=== PATIENT | male | born 1965 | race African-American/Black ===

== ENCOUNTER 2025-01-09 09:46 | Emergency (ER) | payer MEDICAID ==
[~2025-01-09] VITALS: Ht 177.8 cm; Wt 82.0 kg
[2025-01-09 09:55] VITALS: BP 154/81; PULSE 60; RESP 18; TEMP 36.7; O2SAT 99
[2025-01-09] MEDS ORDERED: LIDO-53 TP (13:22)
== END 2025-01-09 14:36 | disposition home or self-care (01) ==
LOC: ER 09:46
DX: M54.2 Cervicalgia (principal); E78.00 Pure hypercholesterolemia, unspecified; I10 Essential (primary) hypertension; V89.2XXA Person injured in unspecified motor-vehicle accident, traffic, initial encounter; Y93.89 Activity, other specified; Y92.89 Other specified places as the place of occurrence of the external cause; Y99.8 Other external cause status
CPT/HCPCS: 99284